=== PATIENT | male | born 2000 | race Two or more races ===

== ENCOUNTER 2021-06-08 22:37 | Emergency (ER) | payer OTHER ==
[~2021-06-08] VITALS: Ht 188 cm; Wt 66.9 kg
[2021-06-08] MEDS ORDERED: PROCHLORPERAZINE 5 MG/ML, 2ML ONE (23:23)
[2021-06-08] MEDS ORDERED: KETOROLAC 30 MG/1 ML ONE (23:24)
[2021-06-08] MEDS ORDERED: DIPHENHYDRAMINE 25 MG CAPSULE ONE (23:24)
[2021-06-08] MEDS ORDERED: PROCHLORPERAZINE 5 MG/ML, 2ML IM ONE (23:30)
[2021-06-08] MEDS ORDERED: KETOROLAC 30 MG/1 ML IM ONE (23:30)
[2021-06-08] MEDS ORDERED: DIPHENHYDRAMINE 25 MG CAPSULE PO ONE (23:30)
[2021-06-08 23:59] VITALS: BP 100/58
--- NOTE | 2021-06-09 00:01 | NUR ---
BREAK RN: Patient is resting comfortably in bed. Bed in lowest, rails engaged, call light on lap. Vital Signs within normal limits. COVID SWAB OBTAINED AND SENT TO LAB. PT DENIES ADDITIONAL QUSTIONS OR NEEDS, STATES HIS HEADACHE HAS DECREASED. WCTM.
--- NOTE | 2021-06-09 00:23 | NUR ---
BREAK RN: Patient/friend given discharge instructions and they have confirmed that they understand the instructions. Patient ambulatory with steady gait. NAD, all questions answered appropriately, denies additional needs at this time. No personal belongings left in room after discharge.
== END 2021-06-09 00:31 | disposition home or self-care (01) ==
LOC: ED 23:40
DX: U07.1 COVID-19 (principal); R51.9 Headache, unspecified; J06.9 Acute upper respiratory infection, unspecified
CPT/HCPCS: 96372; 99284; J0780; J1885; Q0163; U0003; U0005